=== PATIENT | female | born 1985 | race African-American/Black ===

== ENCOUNTER 2017-02-19 16:23 | Emergency (ER) | payer SELFPAY ==
[~2017-02-19] VITALS: Ht 165.1 cm; Wt 115.0 kg
[~2017-02-19 16:23] MED LIST: BACT800T5 PO; CLIN1CAP5 PO; HYDR-3533 PO
[2017-02-19 16:28] VITALS: BP 128/83; PULSE 81; RESP 19; TEMP 98.4; O2SAT 98
--- NOTE | 2017-02-19 16:34 | PD ---
Physical Exam Time Seen by Provider: 16:32 Narrative 31-year-old female presents with complaint of sore throat, fever, chills, cough , diarrhea started yesterday. MAXIMUM TEMPERATURE of 100.4. Patient seen in triage. Vital signs reviewed. Patient awaiting bed placement. Data Data Last Documented VS Vital Signs Date Time Temp Pulse Resp B/P (MAP) Pulse Ox O2 Delivery O2 Flow Rate FiO2 02/19/17 16:28 98.4 81 19 128/83 (98) 98 Room Air [facility] Supervised Visit with BIJU: Cristine Calvin Feb 19, 2017 16:34
--- NOTE | 2017-02-19 16:44 | PD ---
HPI Chief Complaint: ENT Complaint Time Seen by Provider: 16:37 Travel History International Travel<30 days: No Contact w/Intl Traveler<30days: No Traveled to known affect area: No History of Present Illness HPI 31-year-old female with no significant medical history presents to emergency department for evaluation of sore throat, cough, chest congestion, body aches, and subjective fever. This began yesterday. Patient is also a diarrhea. Her mother has had the same earlier this week, but it has improved. Patient has not taken anything for her symptoms, stating that none of it works. Denies any nausea or vomiting. No chest pain. Patient's cough is nonproductive. She has no other symptoms to report. PFSH Past Medical History Arthritis: No Asthma: No Blood Disorders: No Cancer: No Cardiovascular Problems: No High Cholesterol: No COPD: No Cerebrovascular Accident: No Diabetes: No Diminished Hearing: No GERD: No Glaucoma: No Genitourinary: No Headaches: No Hepatitis: No Hiatal Hernia: No Hypertension: No Kidney Stones: No Musculoskeletal: No Neurologic: No Psychiatric: Yes Reproductive: No Respiratory: No Migraines: No Myocardial Infarction: No Renal Failure: No Seizures: No Sleep Apnea: No Thyroid Disease: No : 0 Para: 0 Miscarriage: 0 : 0 Past Surgical History Abdominal Surgery: No Appendectomy: No Cardiac Surgery: No Cholecystectomy: No Ear Surgery: No Endocrine Surgery: No Eye Surgery: No Genitourinary Surgery: No Gynecologic Surgery: No Oral Surgery: No Pacemaker: No Thoracic Surgery: No Other Surgery: Yes (LACERATION REPAIR LEFT WRIST 08/10/08) Social History Alcohol Use: Yes (social) Tobacco Use: Yes (1/2 PACK/DAY) Substance Use: No Allergies-Medications (Allergen,Severity, Reaction): Coded Allergies: morphine (Unverified Allergy, Severe, HALLUCINATION, 02/19/17) Reported Meds & Prescriptions Reported Meds & Active Scripts Active Lortab 5 mg/325 mg (Hydrocodone/Acetaminophen 5 mg/325 mg) 1 Tab 1 Tab PO Q6H PRN Clindamycin Hcl (Clindamycin HCl) 150 Mg Cap 2 Tab PO Q8H 14 Days Bactrim DS (Sulfamethoxazole-Trimethoprim DS) 1 Tab Tab 1 Tab PO BID 14 Days Review of Systems Except as stated in HPI: all other systems reviewed are Neg Physical Exam Narrative GENERAL: Well-nourished female patient, appears in no acute distress however patient's temperature does feel warmer than what has been documented. SKIN: Focused skin assessment warm/dry. HEAD: Atraumatic. Normocephalic. EYES: Pupils equal and round. No scleral icterus. No injection or drainage. ENT: No nasal bleeding or discharge. Mucous membranes pink and moist. NECK: Trachea midline. No JVD. CARDIOVASCULAR: Regular rate and rhythm. No murmur appreciated. RESPIRATORY: No accessory muscle use. Clear to auscultation. Breath sounds equal bilaterally. GASTROINTESTINAL: Abdomen soft, non-tender, nondistended. Hepatic and splenic margins not palpable. MUSCULOSKELETAL: No obvious deformities. No clubbing. No cyanosis. No edema. NEUROLOGICAL: Awake and alert. No obvious cranial nerve deficits. Motor grossly within normal limits. Normal speech. PSYCHIATRIC: Appropriate mood and affect; insight and judgment normal. Data Data Last Documented VS Vital Signs Date Time Temp Pulse Resp B/P (MAP) Pulse Ox O2 Delivery O2 Flow Rate FiO2 02/19/17 16:28 98.4 81 19 128/83 (98) 98 Room Air Orders Orders Ketorolac Inj (Toradol Inj) (02/19/17 17:00) Influenzae A/B Antigen (02/19/17 16:49) Ed Discharge Order (02/19/17 17:47) [facility] Medical Decision Making Medical Screen Exam Complete: Yes Emergency Medical Condition: Yes Medical Record Reviewed: Yes Differential Diagnosis Influenza versus viral syndrome versus URI Narrative Course 31-year-old female presents to the emergency department for evaluation. Patient appears without distress. 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 Influenza screen is sent. Patient is discharged with a work note, and counseled on symptom control. She is encouraged to follow-up with primary care provider She agrees to return immediately with any acute worsening symptoms. Diagnosis Primary Impression: Viral illness Referrals: Primary Care Physician Patient Instructions: General Instructions, Viral Syndrome (ED) Departure Forms: Tests/Procedures, Work Release Enter return to work date: Feb 23, 2017 Additional Instructions: Rest Maintain adequate oral hydration Tylenol and/or ibuprofen as instructed on the package as needed for fever and/ or pain Return immediately to the emergency department with any acute worsening of symptoms Med/Other Pt SpecificInfo: No Change to Meds Disposition: 01 DISCHARGE HOME Condition: Stable Claudia Kidd Feb 19, 2017 16:44
[2017-02-19] MEDS ORDERED: KETOROLAC TROMETHAMINE 60 MG/2 ML (IM) VIAL IM ONE (17:00)
== END 2017-02-19 18:31 | disposition home or self-care (01) ==
LOC: NEPK 16:23
DX: B34.9 Viral infection, unspecified (principal); F17.200 Nicotine dependence, unspecified, uncomplicated
CPT/HCPCS: 87804; 96372; 99284; J1885

== ENCOUNTER 2017-10-18 09:55 | Emergency (ER) | payer MEDICAID ==
[~2017-10-18] VITALS: Ht 165.1 cm; Wt 109.0 kg
[2017-10-18] VITALS (7 sets, daily range): BP systolic 123–153; BP diastolic 79–104; PULSE 83–107; RESP 16–19; TEMP 98; O2SAT 98–100
[2017-10-18] MEDS ORDERED: ASPIRIN 81 MG CHEW TAB PO ONE (10:15)
[2017-10-18] MEDS ORDERED: SODIUM CHLORID 0.9% 500 ML INJ 500 ML IV ONE (10:15)
[2017-10-18] MEDS ORDERED: NITROGLYCERIN 2% OINT 1 GM PACKET TOP ONE (10:15)
[2017-10-18] MEDS ORDERED: SODIUM CHLORIDE 0.9% FLUSH 10 ML FLUSH IVF PRN (10:15)
--- NOTE | 2017-10-18 10:23 | PD ---
HPI Chief Complaint: Chest Pain Time Seen by Provider: 10:02 Travel History International Travel<30 days: No Contact w/Intl Traveler<30days: No Traveled to known affect area: No History of Present Illness HPI The patient is a 32-year-old -[place] female who presents to the emergency department for chest pain. The patient states she developed chest pain yesterday at approximately noon. The patient was resting when the chest pain started. The chest pain is left-sided, occasionally sharp and pleuritic, occasionally dull and pressure related. The pain is nonradiating, will last 10- 15 minutes and then resolved. She does complain of mild shortness of breath with the chest pain but denies any significant cough, nausea, vomiting, or diaphoresis. The patient does have a history of tobacco use. She denies any history of hypertension, hyperlipidemia, coronary artery disease, diabetes, or significant early family medical history for heart disease. The patient denies any recent hospitalizations, surgeries, or prolonged travel. 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 She denies any associated fever. Symptoms are moderate. PFSH Past Medical History Arthritis: No Asthma: No Blood Disorders: No Cancer: No Cardiovascular Problems: No High Cholesterol: No COPD: No Cerebrovascular Accident: No Diabetes: No Diminished Hearing: No GERD: No Glaucoma: No Genitourinary: No Headaches: No Hepatitis: No Hiatal Hernia: No Hypertension: No Kidney Stones: No Medical other: Yes (LYMPHEDEMA) Musculoskeletal: No Neurologic: No Psychiatric: Yes Reproductive: No Respiratory: No Immunizations Current: Yes Migraines: No Myocardial Infarction: No Renal Failure: No Seizures: No Sleep Apnea: No Thyroid Disease: No Tetanus Vaccination: < 5 Years Influenza Vaccination: Yes ?: Not LMP: current : 0 Para: 0 Miscarriage: 0 : 0 Past Surgical History Abdominal Surgery: No Appendectomy: No Cardiac Surgery: No Cholecystectomy: No Ear Surgery: No Endocrine Surgery: No Eye Surgery: No Genitourinary Surgery: No Gynecologic Surgery: No Oral Surgery: No Pacemaker: No Thoracic Surgery: No Other Surgery: Yes (LACERATION REPAIR LEFT WRIST 08/10/08) Social History Alcohol Use: Yes (social) Tobacco Use: Yes (1/2 PACK/DAY) Substance Use: No Allergies-Medications (Allergen,Severity, Reaction): Coded Allergies: morphine (Unverified Allergy, Severe, HALLUCINATION, 10/18/17) Reported Meds & Prescriptions Reported Meds & Active Scripts Active No Active Prescriptions or Reported Medications Review of Systems Except as stated in HPI: all other systems reviewed are Neg General / Constitutional: No: Fever HENT: No: Lightheadedness Cardiovascular: Positive: Chest Pain or Discomfort, No: Diaphoresis, Dyspnea on exertion Respiratory: Positive: Shortness of Breath, No: Cough Gastrointestinal: No: Nausea, Vomiting Musculoskeletal: Positive: Edema (Chronic lower extremity lymphedema) Physical Exam Narrative GENERAL: Awake, alert, pleasant 32-year-old female appears her stated age and appears slightly anxious. SKIN: Focused skin assessment warm/dry. HEAD: Atraumatic. Normocephalic. EYES: Pupils equal and round. No scleral icterus. No injection or drainage. ENT: No nasal bleeding or discharge. Mucous membranes pink and moist. NECK: Trachea midline. No JVD. CARDIOVASCULAR: Regular, tachycardic with a heart rate of 105. RESPIRATORY: No accessory muscle use. Clear to auscultation. Breath sounds equal bilaterally. GASTROINTESTINAL: Abdomen soft, non-tender, nondistended. No rebound tenderness. MUSCULOSKELETAL: Bilateral lower extremity lymphedema. NEUROLOGICAL: Awake and alert. No obvious cranial nerve deficits. Motor grossly within normal limits. Normal speech. PSYCHIATRIC: Appropriate mood and affect; insight and judgment normal. Data Data Last Documented VS Vital Signs Date Time Temp Pulse Resp B/P (MAP) Pulse Ox O2 Delivery O2 Flow Rate FiO2 10/18/17 12:58 83 17 133/85 (101) 100 Room Air 10/18/17 09:57 98.0 Orders Orders Electrocardiogram (10/18/17 10:12) Ckmb (Isoenzyme) Profile (10/18/17 10:12) Complete Blood Count With Diff (10/18/17 10:12) Comprehensive Metabolic Panel (10/18/17 10:12) D-Dimer (10/18/17 10:12) Magnesium (Mg) (10/18/17 10:12) Prothrombin Time / Inr (Pt) (10/18/17 10:12) Act Partial Throm Time (Ptt) (10/18/17 10:12) Troponin I (10/18/17 10:12) Lipase (10/18/17 10:12) Ecg Monitoring (10/18/17 10:12) Bilateral Bp Monitoring (10/18/17 10:12) Iv Access Insert/Monitor (10/18/17 10:12) Oximetry (10/18/17 10:12) Oxygen Administration (10/18/17 10:12) Aspirin Chew (Aspirin Chew) (10/18/17 10:15) Nitroglycerin 2% Oint (Nitroglycerin 2% (10/18/17 10:15) Sodium Chloride 0.9% Flush (Ns Flush) (10/18/17 10:15) Sodium Chlorid 0.9% 500 Ml Inj (Ns 500 M (10/18/17 10:15) Chest, Pa & Lat (10/18/17 10:12) CKMB (10/18/17 10:35) CKMB% (10/18/17 10:35) Ct Pulmonary Angiogram (10/18/17 ) Iohexol 350 Inj (Omnipaque 350 Inj) (10/18/17 12:21) Troponin I (10/18/17 13:35) Methylprednisolone So Succ Inj (Solumedr (10/18/17 12:45) Albuterol-Ipratropium Neb (Duoneb Neb) (10/18/17 12:45) Labs Laboratory Tests Test 10/18/17 10:35 10/18/17 13:35 White Blood Count 8.1 TH/MM3 Red Blood Count 3.82 MIL/MM3 Hemoglobin 12.7 GM/DL Hematocrit 37.6 % Mean Corpuscular Volume 98.2 FL Mean Corpuscular Hemoglobin 33.2 PG Mean Corpuscular Hemoglobin Concent 33.8 % Red Cell Distribution Width 13.9 % Platelet Count 177 TH/MM3 Mean Platelet Volume 8.5 FL Neutrophils (%) (Auto) 69.9 % Lymphocytes (%) (Auto) 21.0 % Monocytes (%) (Auto) 7.4 % Eosinophils (%) (Auto) 1.3 % Basophils (%) (Auto) 0.4 % Neutrophils # (Auto) 5.6 TH/MM3 Lymphocytes # (Auto) 1.7 TH/MM3 Monocytes # (Auto) 0.6 TH/MM3 Eosinophils # (Auto) 0.1 TH/MM3 Basophils # (Auto) 0.0 TH/MM3 CBC Comment DIFF FINAL Differential Comment Prothrombin Time 12.7 SEC Prothromb Time International Ratio 1.3 RATIO Activated Partial Thromboplast Time 25.4 SEC D-Dimer Quantitative (PE/DVT) 10.68 MG/L FEU Blood Urea Nitrogen 14 MG/DL Creatinine 0.82 MG/DL Random Glucose 90 MG/DL Total Protein 7.3 GM/DL Albumin 2.9 GM/DL Calcium Level 7.9 MG/DL Magnesium Level 1.7 MG/DL Alkaline Phosphatase 97 U/L Aspartate Amino Transf (AST/SGOT) 12 U/L Alanine Aminotransferase (ALT/SGPT) 16 U/L Total Bilirubin 0.7 MG/DL Sodium Level 142 MEQ/L Potassium Level 3.9 MEQ/L Chloride Level 108 MEQ/L Carbon Dioxide Level 24.7 MEQ/L Anion Gap 9 MEQ/L Estimat Glomerular Filtration Rate 98 ML/MIN Total Creatine Kinase 234 U/L Creatine Kinase MB 0.9 NG/ML Creatine Kinase MB % 0.4 % Troponin I LESS THAN 0.02 NG/ML LESS THAN 0.02 NG/ML Lipase 130 U/L MDM Medical Decision Making Medical Screen Exam Complete: Yes Emergency Medical Condition: Yes Medical Record Reviewed: Yes Interpretation(s) EKG reveals sinus tachycardia with a heart rate of 107. Inverted T waves noted in the 3, aVF, V5, and V6. Last Impressions Chest X-Ray 10/18/17 1012 Signed Impressions: CONCLUSION: Negative examination. CT Angiography 10/18/17 0000 Signed Impressions: CONCLUSION: 1. Negative for pulmonary embolus. Mild peribronchial thickening is present in the lungs. Laboratory Tests Test 10/18/17 10:35 10/18/17 13:35 White Blood Count 8.1 TH/MM3 Red Blood Count 3.82 MIL/MM3 Hemoglobin 12.7 GM/DL Hematocrit 37.6 % Mean Corpuscular Volume 98.2 FL Mean Corpuscular Hemoglobin 33.2 PG Mean Corpuscular Hemoglobin Concent 33.8 % Red Cell Distribution Width 13.9 % Platelet Count 177 TH/MM3 Mean Platelet Volume 8.5 FL Neutrophils (%) (Auto) 69.9 % Lymphocytes (%) (Auto) 21.0 % Monocytes (%) (Auto) 7.4 % Eosinophils (%) (Auto) 1.3 % Basophils (%) (Auto) 0.4 % Neutrophils # (Auto) 5.6 TH/MM3 Lymphocytes # (Auto) 1.7 TH/MM3 Monocytes # (Auto) 0.6 TH/MM3 Eosinophils # (Auto) 0.1 TH/MM3 Basophils # (Auto) 0.0 TH/MM3 CBC Comment DIFF FINAL Differential Comment Prothrombin Time 12.7 SEC Prothromb Time International Ratio 1.3 RATIO Activated Partial Thromboplast Time 25.4 SEC D-Dimer Quantitative (PE/DVT) 10.68 MG/L FEU Blood Urea Nitrogen 14 MG/DL Creatinine 0.82 MG/DL Random Glucose 90 MG/DL Total Protein 7.3 GM/DL Albumin 2.9 GM/DL Calcium Level 7.9 MG/DL Magnesium Level 1.7 MG/DL Alkaline Phosphatase 97 U/L Aspartate Amino Transf (AST/SGOT) 12 U/L Alanine Aminotransferase (ALT/SGPT) 16 U/L Total Bilirubin 0.7 MG/DL Sodium Level 142 MEQ/L Potassium Level 3.9 MEQ/L Chloride Level 108 MEQ/L Carbon Dioxide Level 24.7 MEQ/L Anion Gap 9 MEQ/L Estimat Glomerular Filtration Rate 98 ML/MIN Total Creatine Kinase 234 U/L Creatine Kinase MB 0.9 NG/ML Creatine Kinase MB % 0.4 % Troponin I LESS THAN 0.02 NG/ML LESS THAN 0.02 NG/ML Lipase 130 U/L Differential Diagnosis Differential diagnosis includes pulmonary embolism, pleurisy, pneumonia, pleural effusion, acute coronary syndrome, STEMI, pericarditis, myocarditis, esophageal spasm. Narrative Course IV was established, labs are drawn and sent, and the patient was placed on cardiac telemetry monitoring and continuous pulse oximetry monitoring. EKG was ordered and interpreted. D-dimer was sent to lab. The patient was administered aspirin and Nitropaste to the chest wall. The patient's chest x- ray is unremarkable. The patient's initial troponin is less than 0.02. However , the d-dimer is positive at 10.68. Therefore, CT pulmonary angiogram was ordered to rule out pulmonary embolism. CTA is negative for PE, does reveal peribronchial thickening, possibly bronchitis. The patient's second troponin is less than 0.02. The patient be discharged home on prednisone, Bactrim, and albuterol. She is advised to follow-up with a primary physician. She will be provided a copy of her CT results and lab results at discharge. Diagnosis Primary Impression: Atypical chest pain Additional Impression: Bronchitis Patient Instructions: General Instructions Additional Instructions: Medications as directed. Please provide the patient a copy of her CT results and lab results at discharge. Return if symptoms worsen or progress. Med/Other Pt SpecificInfo: Prescription(s) given Scripts Sulfamethoxazole-Trimethoprim (Bactrim DS) 800-160 Mg Tab 1 TAB PO BID for Infection, #14 TAB 0 Refills Prov: Yunior Schaefer MD 10/18/17 Albuterol 8.5 GM Inh (Proair Hfa 8.5 GM Inh) 90 Mcg/Act Aer 2 PUFF INH Q6H Y for SHORTNESS OF BREATH, #1 INHALER 0 Refills 108 mcg/actuation Prov: Yunior Schaefer MD 10/18/17 Prednisone (Prednisone) 20 Mg Tab 40 MG PO DAILY, #10 TAB 0 Refills Take 40 mg (2 tablets) daily for 5 days Prov: Yunior Schaefer MD 10/18/17 Disposition: 01 DISCHARGE HOME Condition: Stable Yunior Schaefer MD Oct 18, 2017 10:23
[2017-10-18 10:49] LABS: AUTOMATED NEUTROPHIL # 5.6 TH/MM3 (1.8-7.7); BASOPHIL % 0.4 % (0.0-2.0); EOSINOPHIL # 0.1 TH/MM3 (0-0.4); EOSINOPHIL % 1.3 % (0.0-4.0); HEMATOCRIT 37.6 % (35.0-46.0); HEMOGLOBIN 12.7 GM/DL (11.6-15.3); LYMPHOCYTE # 1.7 TH/MM3 (1.0-4.8); MEAN CELL VOLUME 98.2 FL (80.0-100.0); MEAN CORPUSCULAR HEMOGLOBIN 33.2 PG (27.0-34.0); MEAN CORPUSCULAR HGB CONC 33.8 % (32.0-36.0); MEAN PLATELET VOLUME 8.5 FL (7.0-11.0); MONO % 7.4 % (0.0-8.0); MONOCYTE # 0.6 TH/MM3 (0-0.9); NEUT % 69.9 % (16.0-70.0); PLATELET COUNT 177 TH/MM3 (150-450); RED BLOOD COUNT 3.82 MIL/MM3 (4.00-5.30); RED CELL DISTRIBUTION WIDTH 13.9 % (11.6-17.2); WHITE BLOOD COUNT 8.1 TH/MM3 (4.0-11.0)
--- NOTE | 2017-10-18 10:56 | RADRPT ---
EXAM DATE: 10/18/2017 10:51 AM EDT AGE/SEX: 32 years / Female INDICATIONS: Chest tightness and pressure for 2 days. CLINICAL DATA: This is the patient's initial encounter. Patient reports that signs and symptoms have been present for 2 days and indicates a pain score of 1/10. MEDICAL/SURGICAL HISTORY: None. None. COMPARISON: No prior exams available for comparison. FINDINGS: PA and lateral views of the chest demonstrate the lungs to be symmetrically aerated without evidence of mass, infiltrate or effusion. The cardiomediastinal contours are unremarkable. Osseous structures are intact. CONCLUSION: Negative examination. Electronically signed by: Nino Khan MD 10/18/2017 10:55 AM EDT
[2017-10-18 11:02] LABS: ALBUMIN 2.9 GM/DL (3.4-5.0); ALT (GPT) 16 U/L (10-53); AST (GOT) 12 U/L (15-37); BICARBONATE 24.7 MEQ/L (21.0-32.0); BLOOD UREA NITROGEN 14 MG/DL (7-18); CALCIUM 7.9 MG/DL (8.5-10.1); CHLORIDE 108 MEQ/L (98-107); CREATININE 0.82 MG/DL (0.50-1.00); GLOMERULAR FILTRATION RATE 98 ML/MIN (>89); GLUCOSE,RANDOM 90 MG/DL (74-106); MAGNESIUM 1.7 MG/DL (1.5-2.5); SODIUM (NA) 142 MEQ/L (136-145)
[2017-10-18 11:06] LABS: ALKALINE PHOSPHATASE 97 U/L (45-117); TOTAL BILIRUBIN ADULT 0.7 MG/DL (0.2-1.0); TOTAL PROTEIN 7.3 GM/DL (6.4-8.2); TROPONIN I LESS THAN 0.02 NG/ML (0.02-0.05)
[2017-10-18 11:09] LABS: INTERNATIONAL NORMALIZED RATIO 1.3 RATIO; PROTHROMBIN TIME - PATIENT 12.7 SEC (9.8-11.6)
[2017-10-18 11:10] LABS: D-DIMER 10.68 MG/L FEU (0.00-0.50)
[2017-10-18] MEDS ORDERED: IOHEXOL 350 MG/ML 10 ML VIAL (for RAD DIAG) IVCONTRAST ONE (12:21)
--- NOTE | 2017-10-18 12:30 | RADRPT ---
EXAM DATE: 10/18/2017 12:22 PM EDT AGE/SEX: 32 years / Female INDICATIONS: Left side chest pain for 2 days. CLINICAL DATA: This is the patient's initial encounter. Patient reports that signs and symptoms have been present for 2 days and indicates a pain score of 4/10. MEDICAL/SURGICAL HISTORY: None. None. RADIATION DOSE: 10.53 CTDI (mGy) COMPARISON: No prior exams available for comparison. TECHNIQUE: Volumetric scanning was performed using a multi-row detector CT scanner during bolus infu nicanor of 70 ml Omnipaque 350 (iohexol) nonionic water-soluble contrast as a single exam dose. The jarad a was post processed with a variety of visualization algorithms including full volume maximum intensi ty projection and sliding thin slab reformation. Using automated exposure control and adjustment of the mA and/or kV according to patient size, radiation dose was kept as low as reasonably achievable t o obtain optimal diagnostic quality images. FINDINGS: No filling defects are seen to suggest pulmonary embolic disease. There is no pleural or pericardial effusion. No hilar, mediastinal or axillary adenopathy. There is mild peribronchial thickening in the lungs. CONCLUSION: 1. Negative for pulmonary embolus. Mild peribronchial thickening is present in the lungs. Electronically signed by: Miguel A England MD 10/18/2017 12:29 PM EDT
[2017-10-18] MEDS ORDERED: RESP: ALBUTEROL 2.5 MG/IPRATROPIUM 0.5 MG NEB (SCH) NEB ONE (12:45)
[2017-10-18] MEDS ORDERED: methylPREDNISolone SOD SUCC 125 MG/2 ML VIAL IV PUSH ONE (12:45)
[2017-10-18] MEDS ORDERED: PRED20 PO ×2 (14:50→15:00)
[2017-10-18] MEDS ORDERED: BACT800T5 PO ×2 (14:50→15:00)
[2017-10-18] MEDS ORDERED: ALBUAER3 INH ×2 (14:50→15:00)
--- NOTE | 2017-10-19 14:33 | EKG ---
Date Performed: 10/18/2017 Time Performed: 10:08:28 PTAGE: 32 years EKG: SINUS TACHYCARDIA NONSPECIFIC T-WAVE ABNORMALITY ABNORMAL ECG NO PREVIOUS TRACING DOCTOR: Octavio Fitzpatrick Interpretating Date/Time 10/19/2017 14:31:14
== END 2017-10-18 15:45 | disposition home or self-care (01) ==
LOC: NEPC 09:55
DX: R07.89 Other chest pain (principal); J40 Bronchitis, not specified as acute or chronic; R00.0 Tachycardia, unspecified; I89.0 Lymphedema, not elsewhere classified; F17.210 Nicotine dependence, cigarettes, uncomplicated; Z88.5 Allergy status to narcotic agent
CPT/HCPCS: 71046; 71275; 80053; 82550; 82552; 83690; 83735; 84484; 85025; 85379; 85610; 85730; 93005; 94664; 96361; 96374; 99285; J2930; J7040; Q9967

== ENCOUNTER 2017-10-19 20:31 | Emergency (ER) | payer MEDICAID ==
[~2017-10-19] VITALS: Ht 165.1 cm; Wt 110.0 kg
[~2017-10-19 20:31] MED LIST changes: +ALBUAER3 INH; +PRED20 PO
[2017-10-19 21:08] VITALS: BP 137/90; PULSE 69; RESP 18; TEMP 98; O2SAT 100
--- NOTE | 2017-10-19 23:28 | PD ---
HPI Chief Complaint: Medical Clearance Time Seen by Provider: 23:11 Travel History International Travel<30 days: No Contact w/Intl Traveler<30days: No Traveled to known affect area: No History of Present Illness HPI 32-year-old black female presents emergency department requesting a return to work note. She states that she was seen yesterday in the ER for evaluation of chest pain. She had a complete workup including x-ray, CTA laboratory testing. She was determined to have bronchitis. She states that when she went to work tonight after 2 PM she was told that she needed a work release note. The patient states that she was supposed to been given a work release no at time of discharge yesterday. She states that she is feeling improved. History Past Medical Histgory Narrative Medical Bronchitis Tetanus Vaccination: < 5 Years LMP: 10/18/2017 Hx Cancer: No Social History Alcohol Use: Yes (social) Tobacco Use: Yes (1/2 PACK/DAY) Allergies-Medications (Allergen,Severity, Reaction): Coded Allergies: morphine (Unverified Allergy, Severe, HALLUCINATION, 10/19/17) Reported Meds & Prescriptions Reported Meds & Active Scripts Active Bactrim DS (Sulfamethoxazole-Trimethoprim) 800-160 Mg Tab 1 Tab PO BID Proair Hfa 8.5 GM Inh (Albuterol Sulfate) 90 Mcg/Act Aer 2 Puff INH Q6H PRN 108 mcg/actuation Prednisone 20 Mg Tab 40 Mg PO DAILY Take 40 mg (2 tablets) daily for 5 days Review of Systems General / Constitutional: No: Fever Eyes: No: Visual changes HENT: No: Headaches Cardiovascular: No: Chest Pain or Discomfort Respiratory: Positive: Cough, No: Shortness of Breath Gastrointestinal: No: Abdominal Pain Genitourinary: No: Dysuria Musculoskeletal: No: Pain Skin: No Rash Neurologic: No: Weakness Psychiatric: No: Depression Endocrine: No: Polydipsia Hematologic/Lymphatic: No: Easy Bruising Physical Exam Narrative GENERAL: This is a well-nourished, well-developed patient, in no apparent distress. SKIN: No rashes, ecchymoses or lesions. Warm and dry. HEAD: Atraumatic. Normocephalic. EYES: PERRL, EOMI, no discharge or injection. No scleral icterus. EARS: Clear NOSE: Nasal turbinates appear normal. THROAT: Mucosa pink and moist. Airway patent. NECK: Trachea midline. supple, moves head freely. LUNGS: Clear to auscultation. CV: Regular in rhythm. ABDOMEN: Soft nontender. EXT: No clubbing cyanosis or edema. Data Data Last Documented VS Vital Signs Date Time Temp Pulse Resp B/P (MAP) Pulse Ox O2 Delivery O2 Flow Rate FiO2 10/19/17 21:08 98.0 69 18 137/90 (106) 100 MDM Medical Screen Exam Complete: Yes Emergency Medical Condition: No Differential Diagnosis Differential diagnosis: Work release, bronchitis, pneumonia Narrative Course A medical screening exam was performed: At the time of evaluation the presenting medical condition was determined not to be of an emergent nature. The patient was given the option of receiving additional care, but declined. Patient was given options for additional community resources from which to obtain care. The Patient Has Been advised to seek medical attention for their presenting complaint. The patient has been advised to return to the ER at any time if an emergent condition develops. Primary Impression: Encounter for medical screening examination Condition: Stable Miguel A Hayward Oct 19, 2017 23:28
== END 2017-10-19 23:28 | disposition left against medical advice (07) ==
LOC: NEPD 20:31
DX: Z03.89 Encounter for observation for other suspected diseases and conditions ruled out (principal)
CPT/HCPCS: 99281